=== PATIENT | female | born 1990 | race African-American/Black ===

== ENCOUNTER 2016-05-08 12:51 | Day surgery (SDC) | payer BC, MEDICAID ==
[2016-05-08] MEDS ORDERED: MIDAZOLAM 2 MG/2 ML INJ ONE (13:33)
[2016-05-08] MEDS ORDERED: FENTANYL CITRATE INJ/PF 100 MCG/2 ML AMPUL ONE (13:34)
[2016-05-08] MEDS ORDERED: ALTEPLASE INJ 2 MG VIAL (CATH CLEARANCE) INJ ONE (14:00)
[2016-05-08 14:39] VITALS: BP 129/76
--- NOTE | 2016-05-08 23:00 | EKG REPORT ---
SEVERITY:- NORMAL ECG - SINUS RHYTHM : Confirmed by: Lisa Vargas 08-May-2016 22:59:37
--- NOTE | 2016-05-25 13:17 | PDOC DISCHARGE SUMMARY ---
Discharge Summary (SDC) - Discharge Final Diagnosis: #1 end-stage renal disease on hemodialysis through a PermCath. #[address] #3 hypertension. Date of Surgery: 05/16/16 Discharge Date: 05/16/16 Condition: Good Forms: Discharge POC-Surgical Service Referrals: RENATA ONEIL MD [ACTIVE STAFF] - 05/11/16 9:00 am Respiratory Treatments at Home: Deep Breathing/Coughing Discharge Activity: Activity As Tolerated, Balance Activity w/Rest, Slowly Increase Activity, Walk Frequently Home Care Assistance: None Needed Report the Following to Your Physician Immediately: Shortness of Breath, Nausea , Vomiting, Increase in Pain, Fever over 101 Degrees, Unusual Bleeding, Redness , Swelling, Warmth, Increased Soreness, Drainage-Foul Smelling, Large Clots, Numbness, Tingling Sensation
--- NOTE | 2016-05-25 13:29 | Operative Report ---
Operative Report DATE OF SURGERY: 05/16/16 PREOPERATIVE DIAGNOSIS: #1 end-stage renal disease on hemodialysis through a PermCath. #[address] #3 hypertension POSTOPERATIVE DIAGNOSIS: #1 end-stage renal disease on hemodialysis through a PermCath. #[address] #3 hypertension OPERATION: Laparoscopic insertion of peritoneal dialysis catheter. SURGEON: RENATA ORLANDO SANDWICH HAND: TAMELA RAYGOZA ANESTHESIA: GA TISSUE REMOVED OR ALTERED: Not applicable. COMPLICATIONS: None ESTIMATED BLOOD LOSS: 10 mL. INTRAOPERATIVE FINDINGS: Of a surprisingly clear abdominal cavity. Very little adhesions. Photographs documenting this. Peritoneal dialysis catheter was placed in the proper position on the left with the coil well down in the pelvis. Easy ingress of a liter of heparinized solution and egress of 800 mils. I am optimistic for good function long-term for this catheter. PROCEDURE: After obtaining informed consent and going over the procedure with [the patient , she was taken to the operating room, [she was] anesthetized and intubated. The abdomen was prepped and draped in the usual sterile fashion. After the universal timeout, in which it was verified that the patient received IV antibiotic, the procedure commenced. The topographical location for the peritoneal dialysis catheter was sketched by applying it to the anterior abdominal wall. The reference point was the pubic symphysis the coil of the catheter, just beneath this level. In this way the position for the cuffs and the external catheter exit were ascertained and marked. The catheter was now replaced in antibiotic containing solution. An entry into the abdomen was sketched just to the right of the midline and transversely in the epigastrium. Local anesthesia was infiltrated. A 1 cm, transverse incision was made with a [15 blade scalpel]. Dissection now proceeded to the medial aspect of the right rectus sheath. This was opened and the muscle gently reflected. The posterior rectus sheath and peritoneum were opened between hemostats and entry was gained to the peritoneal cavity. This allowed introduction of a 5 mm laparoscopic port. The abdomen was now insufflated with carbon dioxide up to a maximum pressure of 12 mm of mercury. The camera was inserted and a good view gained of the abdomen. Photographs were taken. Local anesthesia was now infiltrated and an incision made in respect to the curve of the catheter. A 1 cm transverse incision was made at this point and dissection proceeded down to the rectus sheath. This was opened and a Veress needle on a reducing sleeve were were now introduced through the rectus muscle and the manipulated down to about 4 cm inferior to the incision. The peritoneum was now entered and the Veress needle removed. The internal cannula was now placed under direct vision. A swan neck peritoneal dialysis catheter was now placed on a stylette. Great care was taken to keep the orientation in reference to the white line on the catheter. It was now inserted into the peritoneal cavity under direct vision, through the introducer. As the catheter entered the abdomen the stylette was slowly withdrawn allowing it to assume its normal orientation and shape within the peritoneal cavity. Both the stylet and introducer were removed so as to place the internal cuff about 3 cm from the entry point of the peritoneal cavity, and within the rectus sheath. This was verified with respect to the incision. The external curve of the catheter was allowed to form precisely at the level of the incision. Externally the catheter was affixed to a Sakshi stylette which was now used to tunnel the catheter in the subcutaneous tissues to its exit site where it was now used to exit the skin. The catheter orientation and position and, particularly the 2 cuffs of the catheter were verified. Once this was done the external portion of the catheter was affixed to a Leur lock adapter and connected to a sterile IV tubing. This allowed introduction of 1 L of heparinized saline into the peritoneal cavity via the catheter. This occurred with brisk and free flow of fluid into the peritoneal cavity. Once the entire liter had been infused, the bag was now placed beneath the level of the patient and very satisfactory outflow was observed. With this in place, the camera and the catheter were removed and abdomen desufflated. The subcutaneous tissue in each incision was closed with interrupted 3-0 PDS. The skin in each incision was closed using interrupted and continuous sutures of 4-0 Monocryl. Once about 800 mils of the Infusaid had been passively removed from the abdomen, the catheter was flushed with 10 mL of heparinized solution and capped. The bio a patch was applied at the exit site. Benzoin was applied and Steri-Strips used to reinforce each of the wounds. It was also used to help anchor the Biopatch. It was also used to anchor the main catheter so that any external pressure would not dislodge the catheter. Dry gauze and tape applied and the procedure concluded.
--- NOTE | 2016-05-26 12:13 | DISCHARGE SUMMARY E ---
Discharge Summary NAME: LISS ESPINOZA : 1990 AGE: 25Y ADMITTED: 05/08/2016 DISCHARGED: 05/08/2016 FINAL DIAGNOSIS: Please note that the patient was admitted on 05/08 and discharged on 05/08/2016. DICTATING PHYSICIAN: RENATA ONEIL M.D. [id number] PHY#: [id number] ID: [id number] JOB#: [id number] ACCT: [id number] cc:RENATA ONEIL M.D. >
--- NOTE | 2016-05-26 12:15 | OPERATIVE REPORT E ---
Operative Report NAME: LISS SEPINOZA : 1990 AGE: 25Y DATE OF SURGERY: 05/08/2016 ROOM: ADDENDUM: The patient was operated on 05/08/2016. DICTATING PHYSICIAN: RENATA ONEIL M.D. [id number] PHY#: [id number] ID: [id number] JOB#: [id number] ACCT: [id number] cc:RENATA ONEIL M.D. >
== END 2016-05-08 14:43 | disposition home or self-care (01) ==
LOC: OROUT 12:51
PROVIDERS: ATTEND Surgery
PROC: 0WHG43Z Insertion of Infusion Device into Peritoneal Cavity, Percutaneous Endoscopic Approach (ICD-10-PCS; principal; 2016-05-08)
DX: I12.0 Hypertensive chronic kidney disease with stage 5 chronic kidney disease or end stage renal disease (principal); N18.6 End stage renal disease; E66.9 Obesity, unspecified; Z45.2 Encounter for adjustment and management of vascular access device; Z79.899 Other long term (current) drug therapy; Z68.37 Body mass index [BMI] 37.0-37.9, adult
CPT/HCPCS: 75898; 71010; 93005; 93010; 49324; Q9967; J2997; J2250; J3010

== ENCOUNTER 2016-05-16 08:26 | Day surgery (SDC) | payer BC, MEDICAID ==
[2016-05-11 10:11] LABS: HEMATOCRIT 36.2 % (36.0-47.0); HEMOGLOBIN 11.9 g/dL (12.0-15.5); HGB HCT DIFFERENCE -0.5; MEAN CORPUSCULAR HEMOGLOBIN 29.5 pg (27.0-33.4); MEAN CORPUSCULAR HGB CONC 32.9 g/dL (32.0-36.0); MEAN CORPUSCULAR VOLUME 90 fl (80-97); RED BLOOD COUNT 4.03 10^6/uL (3.72-5.28); RED CELL DISTRIBUTION WIDTH 17.5 % (11.5-14.0)
[2016-05-11 10:33] LABS: BLOOD UREA NITROGEN 48 mg/dL (7-20); CALCIUM 9.6 mg/dL (8.4-10.2); CARBON DIOXIDE 22 mmol/L (22-30); CHLORIDE 98 mmol/L (98-107); CREATININE RESULT 11.23 mg/dL (0.52-1.25); GLUCOSE 79 mg/dL (75-110); POTASSIUM 5.7 mmol/L (3.6-5.0); SODIUM 141.9 mmol/L (137-145)
[2016-05-11 10:34] LABS: ANION GAP 22 (5-19)
[~2016-05-16 08:26] MED LIST: BACITRACIN INJ 50,000 UNIT VIAL ONE; BUPIVACAINE HCL 0.25 % INJ/PF (2.5 MG/1 ML) 30 ML VIAL ONE; HEPARIN SOD (PORCINE) 1,000 UNIT/ML 1 ML VIAL ONE; LIDOCAINE 0.5% INJ-PF (5 MG/ML) 50 ML SDV ONE; LIDOCAINE 0.5% INJ-PF (5 MG/ML) 50 ML SDV SUBCUT PRN; NORMAL SALINE 1000 ML (RENAL PATIENTS) IV PRN; VANCOMYCIN HCL 500 MG in DEXTROSE 5%-WATER 100 ML IV PRN
[2016-05-16] MEDS ORDERED: MIDAZOLAM 2 MG/2 ML INJ ONE (10:32)
[2016-05-16] MEDS ORDERED: FENTANYL CITRATE INJ/PF 250 MCG/5 ML AMPULE ONE (10:32)
[2016-05-16] MEDS ORDERED: MORPHINE SULFATE 10 MG/ML INJ ONE (10:33)
[2016-05-16] MEDS ORDERED: PROPOFOL INJ 200 MG/20 ML VIAL IV ONE (10:33)
[2016-05-16] MEDS ORDERED: FENTANYL CITRATE INJ/PF 100 MCG/2 ML AMPUL IV PRN ×3 (11:44)
[2016-05-16] MEDS ORDERED: MEPERIDINE HCL/PF INJ 25 MG/1 ML DISP.SYRIN IV PRN (11:44)
[2016-05-16] MEDS ORDERED: OXYCODONE-ACETAMINOPHEN 5-325 MG TABLET PO PRN ×3 (11:44→13:39)
[2016-05-16] MEDS ORDERED: DIPHENHYDRAMINE HCL 50 MG/ML VIAL IV PRN (11:44)
[2016-05-16] MEDS ORDERED: PROMETHAZINE HCL INJ 25 MG/1 ML VIAL IV PRN ×2 (11:44)
[2016-05-16] MEDS ORDERED: MORPHINE SULFATE 10 MG/ML INJ IV PRN (11:44)
--- NOTE | 2016-05-16 12:23 | PDOC DISCHARGE SUMMARY ---
Discharge Summary (SDC) - Discharge Final Diagnosis: #1 end-stage renal disease on hemodialysis. #[address] #3 hypertension. Date of Surgery: 05/16/16 Discharge Date: 05/16/16 Condition: Good Treatment or Instructions: #1 activities within moderation encouraged. #2 follow up in my office by appointment in about 1 week. Call for appointment. #3 the wounds covered clean and dry until office visit. #4 hold off on school/work until evaluation in office. #5 may shower after 48 hours, keep operated area as dry as possible. #6 discharge from ambulatory to when ASU criteria met. #7 medications per medication reconciliation sheet. #8 Percocet every 8 hourly when necessary for pain. Prescriptions: Oxycodone HCl/Acetaminophen [Percocet 5-325 mg Tablet] 1 tab PO ASDIR PRN #15 tab PRN Reason: Discharge Diet: Other (Comments) - Renal
--- NOTE | 2016-05-16 12:27 | Operative Report ---
Operative Report DATE OF SURGERY: 05/16/16 PREOPERATIVE DIAGNOSIS: #1 end-stage renal disease on hemodialysis. #[address] #3 hypertension. POSTOPERATIVE DIAGNOSIS: #1 end-stage renal disease on hemodialysis. #[address] #3 hypertension. OPERATION: Laparoscopic insertion of peritoneal dialysis catheter. SURGEON: RENATA ORLANDO COATING AND BAKING OPERATOR: TAMELA RAYGOZA ANESTHESIA: GA TISSUE REMOVED OR ALTERED: Not applicable. COMPLICATIONS: None ESTIMATED BLOOD LOSS: 10 mL. INTRAOPERATIVE FINDINGS: Of a quite clear peritoneal cavity. One single adhesion in the facility of the umbilicus. Organs looked normal, normal looking ovaries and uterus, non. The left area shows a slight opening which could be the start of an inguinal hernia. He catheter position nicely with the tip well down in the pelvis, there was a tendency to twist slightly and this was corrected by manipulation with a grasper. The catheter accepted heparinized fluid easily 1 L ran in very quickly and 800 mils out quite easily. The catheter seems to function well. PROCEDURE: After obtaining informed consent and going over the procedure with [the patient and her family], she was taken to the operating room, [she was] anesthetized and intubated. The abdomen was prepped and draped in the usual sterile fashion. After the universal timeout, in which it was verified that the patient received IV antibiotic, the procedure commenced. The topographical location for the peritoneal dialysis catheter was sketched by applying it to the anterior abdominal wall. The reference point was the pubic symphysis the coil of the catheter, just beneath this level. In this way the position for the cuffs and the external catheter exit were ascertained and marked. The catheter was now replaced in antibiotic containing solution. An entry into the abdomen was sketched just to the right of the midline and transversely in the epigastrium. Local anesthesia was infiltrated. A 1 cm, transverse incision was made with a [15 blade scalpel]. Dissection now proceeded to the medial aspect of the right rectus sheath. This was opened and the muscle gently reflected. The posterior rectus sheath and peritoneum were opened between hemostats and entry was gained to the peritoneal cavity. This allowed introduction of a 5 mm laparoscopic port. The abdomen was now insufflated with carbon dioxide up to a maximum pressure of 12 mm of mercury. The camera was inserted and a good view gained of the abdomen. Photographs were taken. Local anesthesia was now infiltrated and an incision made in respect to the curve of the catheter. A 1 cm transverse incision was made at this point and dissection proceeded down to the rectus sheath. This was opened and a Veress needle on a reducing sleeve were were now introduced through the rectus muscle and the manipulated down to about 4 cm inferior to the incision. The peritoneum was now entered and the Veress needle removed. The internal cannula was now placed under direct vision. A swan neck peritoneal dialysis catheter was now placed on a stylette. Great care was taken to keep the orientation in reference to the white line on the catheter. It was now inserted into the peritoneal cavity under direct vision, through the introducer. As the catheter entered the abdomen the stylette was slowly withdrawn allowing it to assume its normal orientation and shape within the peritoneal cavity. Both the stylet and introducer were removed so as to place the internal cuff about 3 cm from the entry point of the peritoneal cavity, and within the rectus sheath. This was verified with respect to the incision. The external curve of the catheter was allowed to form precisely at the level of the incision. [In this patient, because of slight twisting of the catheter, a second 5 mm port was placed in the right midabdomen, under camera vision. This allowed the introduction of a grasper. The grasper was used to take the coil of the peritoneal dialysis catheter and to manipulate itinto the true pelvis. This was done successfully with a very nice appearance of the catheter in the abdomen. ] Externally the catheter was affixed to a Sakshi stylette which was now used to tunnel the catheter in the subcutaneous tissues to its exit site where it was now used to exit the skin. The catheter orientation and position and, particularly the 2 cuffs of the catheter were verified. Once this was done the external portion of the catheter was affixed to a Leur lock adapter and connected to a sterile IV tubing. This allowed introduction of 1 L of heparinized saline into the peritoneal cavity via the catheter. This occurred with brisk and free flow of fluid into the peritoneal cavity. Once the entire liter had been infused, the bag was now placed beneath the level of the patient and very satisfactory outflow was observed. With this in place, the camera and the catheter were removed and abdomen desufflated. The subcutaneous tissue in each incision was closed with interrupted 3-0 PDS. The skin in each incision was closed using interrupted and continuous sutures of 4-0 Monocryl. Once about 800 mils of the Infusaid had been passively removed from the abdomen, the catheter was flushed with 10 mL of heparinized solution and capped. The bio a patch was applied at the exit site. Benzoin was applied and Steri-Strips used to reinforce each of the wounds. It was also used to help anchor the Biopatch. It was also used to anchor the main catheter so that any external pressure would not dislodge the catheter. Dry gauze and tape applied and the procedure concluded. The first aid attendant provided retraction, thus facilitating the operative view. Controlled bleeding. The first aid attendant also followed the suturing, thus facilitating accurate suture placement. Sutured skin and applied dressings.
[2016-05-16] MEDS: FENTANYL CITRATE INJ/PF 100 MCG/2 ML AMPUL ONE ×2 (13:13→13:18)
[2016-05-16] MEDS ORDERED: SUCCINYLCHOLINE CHLORIDE INJ 200 MG/10 ML VIAL ONE (14:40)
[2016-05-16] MEDS ORDERED: METOCLOPRAMIDE HCL INJ/PF 10 MG/2 ML SDV ONE (14:40)
[2016-05-16] MEDS ORDERED: ONDANSETRON HCL INJ/PF 4 MG/2 ML SDV ONE (14:40)
[2016-05-16] MEDS ORDERED: PHENYLEPHRINE HCL INJ/PF 10 MG/1 ML SDV ONE (14:40)
[2016-05-16] MEDS ORDERED: LIDOCAINE 2% INJ-PF (20 MG/ML) 10 ML AMPUL ONE (14:40)
[2016-05-16] MEDS ORDERED: GLYCOPYRROLATE INJ 0.4 MG/2 ML VIAL ONE (14:40)
[2016-05-16] MEDS ORDERED: NEOSTIGMINE METHYLSULFATE 10 MG/10 ML VIAL ONE (14:40)
[2016-05-16] MEDS ORDERED: ROCURONIUM BROMIDE INJ 50 MG/5 ML VIAL IV ONE (14:40)
[2016-05-16 15:26] VITALS: BP 130/80
== END 2016-05-16 15:27 | disposition home or self-care (01) ==
LOC: OROUT 08:26
PROVIDERS: ATTEND Surgery
PROC: 0WHG43Z Insertion of Infusion Device into Peritoneal Cavity, Percutaneous Endoscopic Approach (ICD-10-PCS; principal; 2016-05-16 10:30)
DX: T82.858A Stenosis of other vascular prosthetic devices, implants and grafts, initial encounter (principal); I77.0 Arteriovenous fistula, acquired; N18.6 End stage renal disease; Z99.2 Dependence on renal dialysis; I12.0 Hypertensive chronic kidney disease with stage 5 chronic kidney disease or end stage renal disease; E66.9 Obesity, unspecified; N05.8 Unspecified nephritic syndrome with other morphologic changes; Z79.899 Other long term (current) drug therapy; Z68.37 Body mass index [BMI] 37.0-37.9, adult
CPT/HCPCS: 49324; 36415 ×2; 84132; 84703; 85027; 80048; J2250; J3490 ×4; J3010 ×2; J1644; J2765; J2270; J2370; J0330; J2405; J3370; J2704; J1642; 840

== ENCOUNTER → 2016-06-06 | Outpatient (CLI) | payer BC, MEDICAID | LOC: RAD 07:44 | PROVIDERS: ATTEND Internal Medicine Nephrology | DX: E21.3 Hyperparathyroidism, unspecified (principal) | CPT/HCPCS: 78070; A9500; Q9969 ==

== ENCOUNTER 2016-06-18 11:30 | Emergency (ER) | payer MEDICAID ==
--- NOTE | 2016-06-18 11:36 | ER Document Report ---
ED Medical Screen (RME) - General Stated Complaint: STD CHECK Mode of Arrival: Ambulatory Information source: Patient Notes: Patient is here requesting STD check as her partner is having symptoms. Patient denies any current symptoms at present. I have greeted and performed a rapid initial assessment of this patient. A comprehensive ED assessment and evaluation of the patient, analysis of test results and completion of the medical decision making process will be conducted by additional ED providers. TRAVEL OUTSIDE OF THE [place] IN LAST 30 DAYS: No - Related Data Allergies/Adverse Reactions: No Known Drug Allergies Allergy (Verified 06/18/16 11:35) Past Medical History - Past Medical History Cardiac Medical History: Reports: Hx Hypertension Denies: Hx Coronary Artery Disease, Hx Heart Attack Pulmonary Medical History: Denies: Hx Asthma, Hx Bronchitis, Hx COPD, Hx Pneumonia Neurological Medical History: Denies: Hx Cerebrovascular Accident, Hx Seizures Renal/ Medical History: Reports: Hx Ectopic , Hx End Stage Renal Disease, Hx Peritoneal Dialysis Musculoskeltal Medical History: Denies Hx Arthritis Past Surgical History: Reports: Hx Kidney (Renal Surgery) - Kidney Biopsy, peritoneal dialysis site - Immunizations Hx Diphtheria, Pertussis, Tetanus Vaccination: Yes Physical Exam - Vital signs Vitals: Temp Pulse Resp BP Pulse Ox 98.0 F 83 16 155/97 H 100 06/18/16 11:34 06/18/16 11:34 06/18/16 11:34 06/18/16 11:34 06/18/16 11:34 - General General appearance: Appears well, Alert In distress: None Course - Vital Signs Vital signs: Temp Pulse Resp BP Pulse Ox 98.0 F 83 16 155/97 H 100 06/18/16 11:34 06/18/16 11:34 06/18/16 11:34 06/18/16 11:34 06/18/16 11:34
--- NOTE | 2016-06-18 12:21 | ER Document Report ---
HPI - HPI Pain Level: 0 Context: patient is a 25 year old female p/w concern for std, she states her boyfriend who she is currently sexually active with (only partner, do not use protection) noticied a sore on the foreskin of his penis last sunday and pyuria, no d/c. patient denies any symptoms. no d/c, vaginal bleed, pyuria, hematuria, abdominal /pelvic pain, skin changes. 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 with PD cath available as back up PSH: port, fistula - REPRODUCTIVE Reproductive: DENIES: : - DERM Skin Color: Normal Past Medical History - General Information source: Patient - Social History Smoking Status: Unknown if Ever Smoked Chew tobacco use (# tins/day): No Frequency of alcohol use: None Drug Abuse: None Family History: Reviewed & Not Pertinent, Hypertension Patient has suicidal ideation: No Patient has homicidal ideation: No - Past Medical History Cardiac Medical History: Reports: Hx Hypertension Denies: Hx Coronary Artery Disease, Hx Heart Attack Pulmonary Medical History: Denies: Hx Asthma, Hx Bronchitis, Hx COPD, Hx Pneumonia Neurological Medical History: Denies: Hx Cerebrovascular Accident, Hx Seizures Renal/ Medical History: Reports: Hx Ectopic , Hx End Stage Renal Disease, Hx Peritoneal Dialysis Musculoskeltal Medical History: Denies Hx Arthritis Past Surgical History: Reports: Hx Kidney (Renal Surgery) - Kidney Biopsy, peritoneal dialysis site - Immunizations Hx Diphtheria, Pertussis, Tetanus Vaccination: Yes Vertical Provider Document - CONSTITUTIONAL Agree With Documented VS: Yes Exam Limitations: No Limitations General Appearance: WD/WN, No Apparent Distress - INFECTION CONTROL TRAVEL OUTSIDE OF THE [place] IN LAST 30 DAYS: No - RESPIRATORY O2 Sat by Pulse Oximetry: 100 Course - Re-evaluation Re-evalutation: 06/18/16 14:14 patient is a 25 year old female who presents with concern for STD. Her boyfriend has had a concerning ulceration on his penis for about one week but both admit to being faithful. At this time, patient is asymptomatic thus I will not treat prophylactically. I will follow up with her on Sunday to go over the rest of her results. Patient is agreeable to this plan. - Vital Signs Vital signs: Temp Pulse Resp BP Pulse Ox 98.0 F 83 16 155/97 H 100 06/18/16 11:34 06/18/16 11:34 06/18/16 11:34 06/18/16 11:34 06/18/16 11:34 Discharge - Discharge Clinical Impression: Screen for STD (sexually transmitted disease) Condition: Good Disposition: HOME, SELF-CARE Additional Instructions: -I will follow up with you on Sunday to go over your lab work up which should be completed by tomorrow. In the meantime, please refrain from sexual intercourse until you hear from me. Referrals: ALVAREZ RAPHAEL MD [Primary Care Provider] - Follow up as needed
[2016-06-18 13:57] LABS: APPEARANCE,URINE SLIGHTLY-CLOUDY; BILIRUBIN,URINE NEGATIVE (NEGATIVE); GLUCOSE, URINE 150 mg/dL (NEGATIVE); KETONES,URINE NEGATIVE (NEGATIVE); LEUKOCYTE ESTERASE,URINE NEGATIVE (NEGATIVE); NITRITE,URINE NEGATIVE (NEGATIVE); PROTEIN,URINE 100 mg/dL (NEGATIVE); URINE SPECIFIC GRAVITY 1.008; UROBILINOGEN,URINE NEGATIVE mg/dL (<2.0)
[2016-06-18 14:20] LABS: CHLAM PCR NOT DETECTED (NOT DETECT)
[2016-06-18 14:26] VITALS: BP 146/90
== END 2016-06-18 14:26 | disposition home or self-care (01) ==
LOC: ER 11:30
DX: Z11.3 Encounter for screening for infections with a predominantly sexual mode of transmission (principal); I12.0 Hypertensive chronic kidney disease with stage 5 chronic kidney disease or end stage renal disease; N18.6 End stage renal disease; Z99.2 Dependence on renal dialysis
CPT/HCPCS: 36415; 81001; 81025; 86592; 87210; 87491; 87591; 99283

== ENCOUNTER 2016-07-26 17:10 | Emergency (ER) | payer MEDICAID ==
[2016-07-26 17:28] VITALS: BP 135/76
--- NOTE | 2016-07-26 18:32 | ER Document Report ---
ED Medical Screen (RME) - General Stated Complaint: DIALYSIS PORT PROBLEM Notes: 25 yo female c/o dialysis port fell partially out. left chest wall dialysis catheter. Dialysis schedule MWF. was able to dialize today slight bleeding from site. TRAVEL OUTSIDE OF THE [place] IN LAST 30 DAYS: No - Related Data Allergies/Adverse Reactions: No Known Drug Allergies Allergy (Verified 07/26/16 18:30) Past Medical History - Past Medical History Cardiac Medical History: Reports: Hx Hypertension Denies: Hx Coronary Artery Disease, Hx Heart Attack Pulmonary Medical History: Denies: Hx Asthma, Hx Bronchitis, Hx COPD, Hx Pneumonia Neurological Medical History: Denies: Hx Cerebrovascular Accident, Hx Seizures Renal/ Medical History: Reports: Hx Ectopic , Hx End Stage Renal Disease, Hx Peritoneal Dialysis Musculoskeltal Medical History: Denies Hx Arthritis Past Surgical History: Reports: Hx Kidney (Renal Surgery) - Kidney Biopsy, peritoneal dialysis site - Immunizations Hx Diphtheria, Pertussis, Tetanus Vaccination: Yes Physical Exam - Vital signs Vitals: Temp Pulse Resp BP Pulse Ox 98.6 F 93 16 135/76 H 99 07/26/16 17:27 07/26/16 17:27 07/26/16 17:27 07/26/16 17:27 07/26/16 17:27 Course - Vital Signs Vital signs: Temp Pulse Resp BP Pulse Ox 98.6 F 93 16 135/76 H 99 07/26/16 17:27 07/26/16 17:27 07/26/16 17:27 07/26/16 17:27 07/26/16 17:27
--- NOTE | 2016-07-26 21:15 | ER Document Report ---
ED General - General Chief Complaint: Other Stated Complaint: DIALYSIS PORT PROBLEM Notes: Patient is a 25-year-old female past history of chronic kidney disease with dialysis dependence who presents with concerns of the left subclavian dialysis catheter is been pulled back. She went for dialysis center today and did have dialysis completed but it became pulled out thereafter. They did dress the site after. [place] any significant pain or bleeding to the area. No history of similar symptoms in the past. TRAVEL OUTSIDE OF THE [place] IN LAST 30 DAYS: No - Related Data Allergies/Adverse Reactions: No Known Drug Allergies Allergy (Verified 07/26/16 18:30) Past Medical History - General Information source: Patient - Social History Smoking Status: Never Smoker Chew tobacco use (# tins/day): No Frequency of alcohol use: None Drug Abuse: None Lives with: Family Family History: Reviewed & Not Pertinent, Hypertension Patient has suicidal ideation: No Patient has homicidal ideation: No - Past Medical History Cardiac Medical History: Reports: Hx Hypertension Denies: Hx Coronary Artery Disease, Hx Heart Attack Pulmonary Medical History: Denies: Hx Asthma, Hx Bronchitis, Hx COPD, Hx Pneumonia Neurological Medical History: Denies: Hx Cerebrovascular Accident, Hx Seizures Renal/ Medical History: Reports: Hx Ectopic , Hx End Stage Renal Disease, Hx Peritoneal Dialysis Musculoskeltal Medical History: Denies Hx Arthritis Past Surgical History: Reports: Hx Kidney (Renal Surgery) - Kidney Biopsy, peritoneal dialysis site - Immunizations Hx Diphtheria, Pertussis, Tetanus Vaccination: Yes Review of Systems - Review of Systems Notes: Constitutional: Negative for fever. Cardiovascular: Negative for chest pain. Respiratory: Negative for shortness of breath. Gastrointestinal: Negative for vomiting Musculoskeletal: Negative for back pain. Skin: Negative for rash. Neurological: Negative for weakness or numbness. 10 point ROS negative except as marked above and in HPI. Physical Exam - Vital signs Vitals: Temp Pulse Resp BP Pulse Ox 98.6 F 93 16 135/76 H 99 07/26/16 17:27 07/26/16 17:27 07/26/16 17:27 07/26/16 17:27 07/26/16 17:27 Interpretation: Normal Notes: PHYSICAL EXAMINATION: GENERAL: Well-appearing, well-nourished and in no acute distress. HEAD: Atraumatic, normocephalic. EYES: sclera anicteric, conjunctiva are normal. ENT: Moist mucous membranes. NECK: Normal range of motion LUNGS: Normal work of breathing HEART: 2+ radial pulses bilaterally EXTREMITIES: no pitting or edema. No cyanosis. NEUROLOGICAL: No focal neurological deficits. Moves all extremities spontaneously and on command. PSYCH: Normal mood, normal affect. SKIN: Warm, Dry, normal turgor, a left subclavian Doris's catheter was then pulled back without any bleeding or erythema to the entrance site Course - Re-evaluation Re-evalutation: 07/26/16 21:14 Patient presents with concerns that her left subclavian dialysis catheter has been pulled back. The catheter is significantly withdrawn unlikely not usable for dialysis. She said went to the dialysis center and they did cover the area. I have asked that the patient contact the vascular surgeon Dr. Toney who placed this immediately in the morning as she will likely need replacement of the catheter. She denies any additional symptoms. There is no bleeding to the site. - Vital Signs Vital signs: Temp Pulse Resp BP Pulse Ox 98.6 F 93 16 135/76 H 99 07/26/16 17:27 07/26/16 17:27 07/26/16 17:27 07/26/16 17:27 07/26/16 17:27 Discharge - Discharge Clinical Impression: Complications, dialysis, catheter, mechanical Qualifiers: Encounter type: initial encounter Qualified Code(s): T82.49XA - Other complication of vascular dialysis catheter, initial encounter Condition: Good Disposition: HOME, SELF-CARE Additional Instructions: You need to contact Dr. Toney first thing in the morning and notify him that you will need a replacement catheter as the current one is likely no longer usable. You should also contact the clinic in [place] that you are going to go see tomorrow and notify them that you will likely not be able to make the appointment unless they are able to replace your catheter while you are there. Return for any additional concerns including bleeding around the site or pain. Forms: Return to Work Referrals: REMINGTON MACEDO MD [Primary Care Provider] - Follow up as needed
== END 2016-07-26 21:39 | disposition home or self-care (01) ==
LOC: ER 17:10
DX: T85.691A Other mechanical complication of intraperitoneal dialysis catheter, initial encounter (principal); Y82.8 Other medical devices associated with adverse incidents; Y84.1 Kidney dialysis as the cause of abnormal reaction of the patient, or of later complication, without mention of misadventure at the time of the procedure; I12.0 Hypertensive chronic kidney disease with stage 5 chronic kidney disease or end stage renal disease; N18.6 End stage renal disease; Z99.2 Dependence on renal dialysis
CPT/HCPCS: 99283

== ENCOUNTER → 2016-08-15 | Outpatient (CLI) | payer MEDICAID | LOC: RAD 08:52 | PROVIDERS: ATTEND Surgery | DX: N25.81 Secondary hyperparathyroidism of renal origin (principal) | CPT/HCPCS: 78070; A9500; Q9969 ==

== ENCOUNTER 2016-08-25 15:53 | Emergency (ER) | payer MEDICAID ==
--- NOTE | 2016-08-25 17:48 | ER Document Report ---
ED General - General Time seen by provider: 17:40 Mode of Arrival: Ambulatory Information source: Patient TRAVEL OUTSIDE OF THE [place] IN LAST 30 DAYS: No - HPI Onset: This morning - see HPI note Associated symptoms: Body/muscle aches, Fever Similar symptoms previously: No Recently seen / treated by doctor: No <STEVE NAVA - Last Filed: 08/25/16 19:21> <IGLESIA CHERY - Last Filed: 08/28/16 03:04> - General Chief Complaint: Flu Symptoms Stated Complaint: FEVER,BODYACHES Notes: Patient is a 25-year-old female presented emergency department for fever and body aches. 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 Patient has been on dialysis for 3 years ago Sunday, Sunday, Sunday. Patient went to dialysis today. After leaving dialysis, she started feeling sick. Patient denies any history of PE or DVT. Patient is on a blood thinner, Coumadin, the level was checked one week ago. (STEVE NAVA) - Related Data Allergies/Adverse Reactions: No Known Drug Allergies Allergy (Verified 08/25/16 16:09) Past Medical History - General Information source: Patient - Social History Smoking Status: Never Smoker Chew tobacco use (# tins/day): No Frequency of alcohol use: None Drug Abuse: None Family History: Hypertension Patient has suicidal ideation: No Patient has homicidal ideation: No - Past Medical History Cardiac Medical History: Reports: Hx Hypertension Renal/ Medical History: Reports: Hx Ectopic , Hx End Stage Renal Disease Past Surgical History: Reports: Hx Kidney (Renal Surgery) - Kidney Biopsy, peritoneal dialysis site - Immunizations Hx Diphtheria, Pertussis, Tetanus Vaccination: Yes <STEVE NAVA - Last Filed: 08/25/16 19:21> Review of Systems - Review of Systems Constitutional: See HPI, Fever, Other - body aches EENT: No symptoms reported Cardiovascular: No symptoms reported Respiratory: No symptoms reported Gastrointestinal: No symptoms reported Genitourinary: No symptoms reported Female Genitourinary: No symptoms reported Musculoskeletal: No symptoms reported Skin: No symptoms reported Hematologic/Lymphatic: No symptoms reported Neurological/Psychological: No symptoms reported -: Yes All other systems reviewed and negative <STEVE NAVA - Last Filed: 08/25/16 19:21> Physical Exam - Vital signs Interpretation: Tachycardic - General General appearance: Appears well, Alert In distress: Mild - HEENT Head: Normocephalic, Atraumatic Eyes: Normal Pupils: PERRL Mucous membranes: Moist - Respiratory Respiratory status: No respiratory distress Chest status: Nontender Breath sounds: Normal Chest palpation: Normal - Cardiovascular Rhythm: Regular Heart sounds: Normal auscultation Murmur: No - Abdominal Inspection: Normal Distension: No distension Bowel sounds: Normal Tenderness: Nontender Organomegaly: No organomegaly - Back Back: Normal, Nontender - Extremities General upper extremity: Other - Positive thrill and right arm fistula General lower extremity: Other - Dialysis access site to the right anterior thigh. It is clean, dry, intact with no signs of necrosis, crepitus or cellulitis - Neurological Neuro grossly intact: Yes Cognition: Normal Orientation: AAOx4 Zaira Coma Scale Eye Opening: Spontaneous [place] Coma Scale Verbal: Oriented [place] Coma Scale Motor: Obeys Commands Zaira Coma Scale Total: 15 Speech: Normal - Psychological Associated symptoms: Normal affect, Normal mood - Skin Skin Temperature: Warm Skin Moisture: Dry <STEVE NAVA - Last Filed: 08/25/16 19:21> <IGLESIA CHERY - Last Filed: 08/28/16 03:04> - Vital signs Vitals: Temp Pulse Resp BP Pulse Ox 100.6 F H 115 H 14 158/99 H 100 08/25/16 16:09 08/25/16 16:09 08/25/16 16:09 08/25/16 16:09 08/25/16 16:09 Course - Laboratory Result Diagrams: 08/25/16 19:00 08/25/16 19:00 <STEVE NAVA - Last Filed: 08/25/16 19:21> - Laboratory Result Diagrams: 08/25/16 19:00 08/25/16 19:00 <IGLESIA CHERY - Last Filed: 08/28/16 03:04> - Re-evaluation Re-evalutation: 08/25/16 20:15 Patient presents emergency per with chief complaint of fever starting this afternoon. 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 She dialyzes Sunday and Sunday last dialyzed today to completion. She also on Coumadin for protein C deficiency and sees Dr. Dent. She has a fever or chill and bodyaches temperature here is 100.6 she is little tachycardic not tachypneic she is well-appearing nontoxic HEENT is normal no nuchal rigidity or concerns for acute meningitis heart rate and rhythm is tachycardic lungs crawfish bilateral wheezes rales or rhonchi abdomen soft no tenderness guarding rebound rigidity no pulsatile abdominal masses or hernias from plus symmetrical nondirectional edema Tender swelling skin is warm dry without cyanosis must take or purpura right antecubital fossa has a positive thrill and audible bruit no signs of infection she has catheter in the right anterior leg with also clean dry and intact no signs of infection cellulitis or crepitus. After evaluation no acute white count elevation negative strep negative pneumonia negative flu patient does not make urine. At this time she is not septic she is not hypotensive fever is improved tachycardia is improved. Don't see any source of infection given the nature of her history of or follow primary care physician one day she is unable to do so return to the emergency department sooner for increasing worsening or new symptoms long discussion with her and her father at the bedside. (IGLESIA CHERY) - Vital Signs Vital signs: Temp Pulse Resp BP Pulse Ox 99.9 F 104 H 18 119/66 93 08/25/16 20:21 08/25/16 20:21 08/25/16 20:21 08/25/16 20:21 08/25/16 20:21 - Laboratory Laboratory results interpreted by me: 08/25/16 08/25/16 19:00 19:00 RDW 20.1 H Lymphocytes % 9.5 L BUN 26 H Creatinine 7.38 H Est GFR ( Amer) 8 L Est GFR (Non-Af Amer) 7 L Calcium 7.8 L Discharge <STEVE NAVA - Last Filed: 08/25/16 19:21> <IGLESIA CHERY - Last Filed: 08/28/16 03:04> - Discharge Clinical Impression: Fever Qualifiers: Fever type: unspecified Qualified Code(s): R50.9 - Fever, unspecified Condition: Stable Disposition: HOME, SELF-CARE Instructions: Acetaminophen Additional Instructions: Fever Fever is the body's reaction to infection. Fever can also occur with illnesses that create fever-producing substances in the body. By itself, fever is not harmful. It helps the body fight invading germs. We are more concerned with: (1) What's causing the fever? (2) How can we keep you more comfortable until the fever goes away? Early in an illness, symptoms are often so vague that a diagnosis can't be made. If the doctor hasn't identified a clear cause for your fever, you will probably develop new symptoms within the next two days. Contact the doctor if you develop severe worsening headache, rash, chest pain, cough with yellow or green sputum, difficulty breathing, abdominal pain, or other new symptoms. There is no reason to treat a fever if you're comfortable. If the fever is causing aches, headache, and fatigue, you can treat it with ibuprofen (Advil , Nuprin, etc) or acetaminophen (Tylenol). Follow the directions on the bottle. Get plenty of liquids (three quarts per day). Rest. Physical work or sports will raise the temperature higher and make you feel much worse. Dress lightly. If you're chilling, this means the temperature is trying to go higher. Take ibuprofen or acetaminophen. When you feel sweaty and "feverish" the temperature is coming down. If the fever doesn't go away within two days or if you become more ill, call the doctor or return at once for re-examination. Follow-up with your primary care physician one to 2 days return to the ER for increasing worsening or new symptoms Referrals: ALVAREZ RAPHAEL MD [Primary Care Provider] - Follow up as needed Scribe Attestation: 08/25/16 20:15 I personally performed the services described in the documentation reviewed the documentation recorded by the scribe in my presence and it accurately incompletely records my words and actions (IGLESIA CHERY) Scribe Documentation - Scribe Written by Louie:: Steve Nava 08/25/16 19:42 acting as scribe for :: Charles <STEVE NAVA - Last Filed: 08/25/16 19:21>
[2016-08-25] MEDS ORDERED: ACETAMINOPHEN 325 MG TABLET PO ONE (17:49)
[2016-08-25 19:12] LABS: ABSOLUTE EOSINOPHILS # (AUTO) 0.2 10^3/uL (0.0-0.6); ABSOLUTE LYMPHOCYTES (AUTO) 0.5 10^3/uL (0.5-4.7); ABSOLUTE MONOCYTES (AUTO) 0.4 10^3/uL (0.1-1.4); ABSOLUTE NEUT (AUTO) 3.9 10^3/uL (1.7-8.2); BASOPHILS % (AUTO) 0.6 % (0-2); EOSINOPHILS % (AUTO) 4.6 % (0-6); HEMATOCRIT 38.2 % (36.0-47.0); HEMOGLOBIN 12.3 g/dL (12.0-15.5); HGB HCT DIFFERENCE -1.3; LYMPHOCYTES % (AUTO) 9.5 % (13-45); MEAN CORPUSCULAR HEMOGLOBIN 28.6 pg (27.0-33.4); MEAN CORPUSCULAR HGB CONC 32.3 g/dL (32.0-36.0); MEAN CORPUSCULAR VOLUME 89 fl (80-97); MONOCYTES % (AUTO) 7.5 % (3-13); RED BLOOD COUNT 4.31 10^6/uL (3.72-5.28); RED CELL DISTRIBUTION WIDTH 20.1 % (11.5-14.0); SEGMENTED NEUTROPHILS % (AUTO) 77.8 % (42-78); WHITE BLOOD COUNT 5.1 10^3/uL (4.0-10.5)
[2016-08-25 19:35] LABS: BLOOD UREA NITROGEN 26 mg/dL (7-20); CALCIUM 7.8 mg/dL (8.4-10.2); CARBON DIOXIDE 24 mmol/L (22-30); CREATININE RESULT 7.38 mg/dL (0.52-1.25); GLUCOSE 97 mg/dL (75-110); POTASSIUM 4.7 mmol/L (3.6-5.0)
[2016-08-25 20:02] LABS: ANION GAP 18 (5-19); CHLORIDE 99 mmol/L (98-107)
[2016-08-25 21:06] VITALS: BP 119/66
== END 2016-08-25 20:30 | disposition home or self-care (01) ==
LOC: ER 15:53
DX: R50.9 Fever, unspecified (principal); M79.1 Myalgia; R00.0 Tachycardia, unspecified; I12.0 Hypertensive chronic kidney disease with stage 5 chronic kidney disease or end stage renal disease; N18.6 End stage renal disease; Z99.2 Dependence on renal dialysis; D68.59 Other primary thrombophilia; Z79.01 Long term (current) use of anticoagulants
CPT/HCPCS: 99283; 36415; 87040; 87070; 87880; 83605; 85025; 87077; 80048; 87804; 71010; J3490

== ENCOUNTER 2016-09-26 14:19 | Outpatient (CLI) | payer MEDICAID ==
[2016-09-26] MEDS ORDERED: CALCIUM GLUCONATE IV PRN (14:26)
[2016-09-26] MEDS ORDERED: DEXTROSE 5% IV PRN (14:26)
[2016-09-26] MEDS ORDERED: WATER IV PRN (14:26)
[2016-09-26 16:02] VITALS: BP 146/62
== END 2016-09-26 16:08 | disposition home or self-care (01) ==
LOC: II 14:19
PROVIDERS: ATTEND Internal Medicine Nephrology
PROC: 3E033GC Introduction of Other Therapeutic Substance into Peripheral Vein, Percutaneous Approach (ICD-10-PCS; principal; 2016-09-26)
DX: E83.51 Hypocalcemia (principal)
CPT/HCPCS: 96365; J0610

== ENCOUNTER → 2016-09-26 | Outpatient (CLI) | payer MEDICAID | LOC: OD 09:56 | PROVIDERS: ATTEND Internal Medicine Nephrology | DX: E83.51 Hypocalcemia (principal) | CPT/HCPCS: 36415 ==

== ENCOUNTER 2016-09-28 09:34 | Outpatient (CLI) | payer MEDICAID ==
[2016-09-28] MEDS ORDERED: WATER IV PRN (09:57)
[2016-09-28] MEDS ORDERED: CALCIUM GLUCONATE IV PRN (09:57)
[2016-09-28] MEDS ORDERED: DEXTROSE 5% IV PRN (09:57)
[2016-09-28] MEDS ORDERED: CALCIUM GLUCONATE 1000 MG/10 ML INJ IV ONE (10:30)
[2016-09-28 10:49] VITALS: BP 126/72
[2016-09-28] MEDS ORDERED: HEPARIN SOD (PORCINE) 1,000 UNIT/ML 10 ML VIAL IV PRN (11:19)
== END 2016-09-28 13:06 | disposition home or self-care (01) ==
LOC: II 09:34 → 4N 09:48 → II 13:06
PROVIDERS: ATTEND Internal Medicine Nephrology
PROC: 3E043GC Introduction of Other Therapeutic Substance into Central Vein, Percutaneous Approach (ICD-10-PCS; principal; 2016-09-28)
DX: E83.51 Hypocalcemia (principal)
CPT/HCPCS: 96365; J0610; J1644

== ENCOUNTER → 2016-09-28 | Outpatient (CLI) | payer MEDICAID | LOC: OD 07:10 | PROVIDERS: ATTEND Internal Medicine Nephrology | DX: Z53.9 Procedure and treatment not carried out, unspecified reason (principal) ==

== ENCOUNTER → 2016-09-30 | Outpatient (CLI) | payer MEDICAID | LOC: OD 10:12 | PROVIDERS: ATTEND Internal Medicine Nephrology | DX: E83.51 Hypocalcemia (principal); E53.8 Deficiency of other specified B group vitamins | CPT/HCPCS: 36415; 82330; 83735 ==

== ENCOUNTER 2016-10-01 00:42 | Emergency (ER) | payer MEDICAID ==
[2016-10-01 01:35] LABS: ALANINE AMINOTRANSFERASE 21 U/L (9-52); ALKALINE PHOSPHATASE 213 U/L (38-126); ASPARTATE AMINO TRANSFERASE 25 U/L (14-36); BILIRUBIN,DIRECT 0.5 mg/dL (0.0-0.4); BILIRUBIN,TOTAL 0.5 mg/dL (0.2-1.3); BLOOD UREA NITROGEN 52 mg/dL (7-20); CARBON DIOXIDE 23 mmol/L (22-30); CHLORIDE 100 mmol/L (98-107); CREATININE RESULT 9.59 mg/dL (0.52-1.25); GLUCOSE 88 mg/dL (75-110); POTASSIUM 5.1 mmol/L (3.6-5.0); SODIUM 142.7 mmol/L (137-145); TOTAL PROTEIN 7.3 g/dL (6.3-8.2)
[2016-10-01 01:52] LABS: ANION GAP 19 (5-19)
[2016-10-01] MEDS ORDERED: CALCIUM GLUCONATE 1000 MG/10 ML INJ IV ONE ×2 (02:21→03:38)
--- NOTE | 2016-10-01 02:27 | ER Document Report ---
ED General - General Mode of Arrival: Ambulatory Information source: Patient TRAVEL OUTSIDE OF THE [place] 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 Patient states that she receives calcium infusions on Sunday, Sunday, and Sunday at dialysis, and receives infusions on non-dialysis days depending on calcium levels. Patient reports feeling tingling to the bilateral hands and feet that is resolved with calcium supplementation. (ENDY LUCAS) - Related Data Allergies/Adverse Reactions: vancomycin Adverse Reaction (Verified 10/01/16 00:51) Urticaria Past Medical History - General Information source: Patient - Social History Smoking Status: Unknown if Ever Smoked Family History: Hypertension - Past Medical History Cardiac Medical History: Reports: Hx Hypertension Renal/ Medical History: Reports: Hx Ectopic , Hx End Stage Renal Disease, Hx Peritoneal Dialysis GI Medical History: Reports: Hx Gastroesophageal Reflux Disease Past Surgical History: Reports: Hx Kidney (Renal Surgery) - Kidney Biopsy, peritoneal dialysis site, Other - parathyroidectomy - Immunizations Hx Diphtheria, Pertussis, Tetanus Vaccination: Yes <ENDY LUCAS - Last Filed: 10/01/16 02:41> Review of Systems - Review of Systems Constitutional: See HPI, Other - hypocalcemia EENT: No symptoms reported Cardiovascular: No symptoms reported Respiratory: No symptoms reported Gastrointestinal: No symptoms reported Genitourinary: No symptoms reported Female Genitourinary: No symptoms reported Musculoskeletal: No symptoms reported Skin: No symptoms reported Hematologic/Lymphatic: No symptoms reported Neurological/Psychological: No symptoms reported, Tingling - bilateral hands and feet -: Yes All other systems reviewed and negative <ENDY LUCAS - Last Filed: 10/01/16 02:41> Physical Exam - General General appearance: Alert, Other - perm cath is present In distress: None - HEENT Head: Normocephalic, Atraumatic Eyes: Normal Extraocular movements intact: Yes Pupils: PERRL - Respiratory Respiratory status: No respiratory distress - Cardiovascular Rhythm: Regular - Abdominal Inspection: Obese - Back Back: Normal - Extremities General upper extremity: Normal inspection, Normal ROM, Other - shunt present to the left upper extremity General lower extremity: Normal inspection, Normal ROM - Neurological Neuro grossly intact: Yes - Psychological Associated symptoms: Normal affect, Normal mood - Skin Skin Temperature: Warm Skin Moisture: Dry Skin Color: Normal <ENDY LUCAS - Last Filed: 10/01/16 02:41> Course - Laboratory Result Diagrams: 10/01/16 01:00 <ENDY LUCAS - Last Filed: 10/01/16 02:41> - Laboratory Result Diagrams: 10/01/16 01:00 <GABRIELLE DONNELLY - Last Filed: 10/01/16 04:09> - Vital Signs Vital signs: Temp Pulse Resp BP Pulse Ox 98.1 F 85 18 138/89 H 87 L 10/01/16 00:51 10/01/16 00:51 10/01/16 00:51 10/01/16 00:51 10/01/16 00:51 - Laboratory Laboratory results interpreted by me: 10/01/16 10/01/16 01:00 02:50 Potassium 5.1 H BUN 52 H Creatinine 9.59 H Est GFR ( Amer) 6 L Est GFR (Non-Af Amer) 5 L Calcium 6.0 L* Ionized Calcium Mary 0.83 L Direct Bilirubin 0.5 H Alkaline Phosphatase 213 H Discharge <ENDY LUCAS - Last Filed: 10/01/16 02:41> <GABRIELLE DONNELLY - Last Filed: 10/01/16 04:09> - Discharge Clinical Impression: Hypocalcemia Condition: Stable Disposition: HOME, SELF-CARE Additional Instructions: Follow-up with your doctors at dialysis on Sunday. Return if any problems. Referrals: ALVAREZ RAPHAEL MD [Primary Care Provider] - Follow up as needed Scribe Attestation: 10/01/16 04:09 I personally performed the services described in the documentation, reviewed and edited the documentation which was dictated to the scribe in my presence, and it accurately records my words and actions. (GABRIELLE DONNELLY) Scribe Documentation - Scribe Written by Scribe:: Louie Ruggiero, 10/01/2016 0233 acting as scribe for :: Cony <ENDY LUCAS - Last Filed: 10/01/16 02:41>
[2016-10-01 06:44] VITALS: BP 126/84
== END 2016-10-01 06:13 | disposition home or self-care (01) ==
LOC: ER 00:42
DX: E83.51 Hypocalcemia (principal); R20.2 Paresthesia of skin; I12.0 Hypertensive chronic kidney disease with stage 5 chronic kidney disease or end stage renal disease; N18.6 End stage renal disease; E89.0 Postprocedural hypothyroidism; Z99.2 Dependence on renal dialysis; Z88.3 Allergy status to other anti-infective agents
CPT/HCPCS: 99283; 96365; 96366; 36415; 80053; 82330; J0610

== ENCOUNTER 2016-10-03 15:28 | Outpatient (CLI) | payer MEDICAID ==
[2016-10-03] MEDS ORDERED: DEXTROSE 5% IV PRN (16:20)
[2016-10-03] MEDS ORDERED: WATER IV PRN (16:20)
[2016-10-03] MEDS ORDERED: CALCIUM GLUCONATE IV PRN (16:20)
[2016-10-03] MEDS ORDERED: HEPARIN SOD (PORCINE) 1,000 UNIT/ML 10 ML VIAL IV PRN (16:30)
[2016-10-03 18:50] VITALS: BP 124/80
== END 2016-10-03 18:45 | disposition home or self-care (01) ==
LOC: II 15:28 → 4S 15:33 → II 18:45
PROVIDERS: ATTEND Internal Medicine Nephrology
PROC: 3E043GC Introduction of Other Therapeutic Substance into Central Vein, Percutaneous Approach (ICD-10-PCS; principal; 2016-10-03)
DX: E83.51 Hypocalcemia (principal)
CPT/HCPCS: J0610; J1644; 96365

== ENCOUNTER → 2016-10-07 | Outpatient (CLI) | payer MEDICAID | LOC: OD 10:40 | PROVIDERS: ATTEND Internal Medicine Nephrology | DX: E83.51 Hypocalcemia (principal); Z53.8 Procedure and treatment not carried out for other reasons | CPT/HCPCS: 36415; 82330; 83735 ==

== ENCOUNTER 2016-11-28 07:44 | Day surgery (SDC) | payer OTHER, MEDICAID ==
[~2016-11-28 07:44] MED LIST changes: -BACITRACIN INJ 50,000 UNIT VIAL ONE; -HEPARIN SOD (PORCINE) 1,000 UNIT/ML 1 ML VIAL ONE; -LIDOCAINE 0.5% INJ-PF (5 MG/ML) 50 ML SDV SUBCUT PRN; -NORMAL SALINE 1000 ML (RENAL PATIENTS) IV PRN; -VANCOMYCIN HCL 500 MG in DEXTROSE 5%-WATER 100 ML IV PRN
[2016-11-28] MEDS ORDERED: CEFAZOLIN 1 GM/D5W RTU 1 GM/50 ML RTUPB IV PRN (08:00)
[2016-11-28 08:25] LABS: HEMATOCRIT 37.8 % (36.0-47.0); HEMOGLOBIN 12.4 g/dL (12.0-15.5); HGB HCT DIFFERENCE -0.6; MEAN CORPUSCULAR HEMOGLOBIN 29.2 pg (27.0-33.4); MEAN CORPUSCULAR HGB CONC 32.8 g/dL (32.0-36.0); MEAN CORPUSCULAR VOLUME 89 fl (80-97); RED BLOOD COUNT 4.24 10^6/uL (3.72-5.28); RED CELL DISTRIBUTION WIDTH 17.3 % (11.5-14.0); WHITE BLOOD COUNT 3.8 10^3/uL (4.0-10.5)
[2016-11-28 08:47] LABS: BLOOD UREA NITROGEN 55 mg/dL (7-20); CHLORIDE 98 mmol/L (98-107); CREATININE RESULT 10.99 mg/dL (0.52-1.25); GLUCOSE 84 mg/dL (75-110); POTASSIUM 5.3 mmol/L (3.6-5.0)
[2016-11-28 08:55] LABS: CARBON DIOXIDE 20 mmol/L (22-30); SODIUM 140.4 mmol/L (137-145)
[2016-11-28 09:00] LABS: ANION GAP 22 (5-19)
--- NOTE | 2016-11-28 09:04 | PDOC H&P ---
General Chief Complaint: This patient is referred across for removal of her dialysis catheter. She has established on the right arm cephalic vein fistula, which is working well for her. The peritoneal dialysis catheter is redundant. - Current Medications/Allergies Home Medications: Furosemide [Lasix 40 mg Tablet] 40 mg PO DAILY 08/22/12 Hydralazine HCl [Apresoline 50 mg Tablet] 100 mg PO TID 08/21/15 Sodium Bicarbonate [Sodium Bicarbonate 650 mg Tablet] 650 mg PO BID 08/21/15 Metoprolol Tartrate [Lopressor 25 mg Tablet] 25 mg PO DAILY 09/20/15 Calcium Acetate [Phoslo 667 mg Capsule] 667 mg PO AC 05/08/16 Clonidine HCl 0.1 mg PO DAILY 05/08/16 Calcitriol 5 cap PO BID 09/28/16 Warfarin Sodium [Coumadin 5 mg Tablet] 5 mg PO QHS 09/28/16 Allergies/Adverse Reactions: vancomycin Adverse Reaction (Verified 10/01/16 00:51) Urticaria Past Medical History Cardiac Medical History: Reports: Hypertension Denies: Congestive Heart Failure Pulmonary Medical History: Denies: Tuberculosis Neurological Medical History: Renal/ Medical History: Reports: End Stage Renal Disease GI Medical History: Reports: Gastroesophageal Reflux Disease Denies: Cirrhosis Musculoskeltal Medical History: Psychiatric Medical History: Denies: Bipolar Disorder, Depression Hematology: Reports: Anemia Denies: Bleeding Tendencies Past Surgical History Past Surgical History: Reports: Other - parathyroidectomy Family History Family History: Hypertension Parental Family History Reviewed: No Children Family History Reviewed: No Sibling(s) Family History Reviewed.: No Social History Smoking Status: Never Smoker Frequency of Alcohol Use: None Hx Recreational Drug Use: No Drugs: None Hx Prescription Drug Abuse: No Physical Exam Vital Signs: Temp Pulse Resp BP Pulse Ox 98.1 F 91 16 127/81 H 100 11/28/16 07:27 11/28/16 07:27 11/28/16 07:27 11/28/16 07:27 11/28/16 07:27 Intake & Output 11/27/16 11/28/16 11/29/16 06:59 06:59 06:59 Intake Total 0 Balance 0 Weight 87 kg 87.54 kg Additional comments: Constitutional: Well-developed well-nourished -[place] lady, moderately increased body mass index. No apparent acute distress. Eyes: Mucous membranes pink and moist, pupils equal and reactive to light. Conjunctiva normal. Cornea normal. ENT: Hearing grossly normal. External pinna normal to inspection. Teeth intact. Tongue normal to inspection. Cardiac: Heart sounds normal. Respiratory breath sounds are present bilaterally, normal. Normal respiratory effort. Skin: Normal to inspection. No ulcers, normal turgor. Abdomen: Soft, nontender. Liver and spleen are not palpably enlarged. Bowel sounds are normal. No hernia noted. Surgical scars and left-sided peritoneal dialysis catheter in place. Psychiatric: Judgment, memory, insight seem normal. Mood is pleasant and appropriate. Extremities: Upper extremities show normal range of movement. Pulses present noted to the radial arteries. Capillary refill normal. No cyanosis noted. No muscle wasting noted. Right brachiocephalic fistula functional. . Impression/Plan Impression: #1 end-stage renal disease on hemodialysis. 2. Peritoneal dialysis cath in place. 3. Hypertension. Plan: In this patient with a redundant parat[place] dialysis catheter, established on the right arm brachiocephalic fistula, removal of her peritoneal dialysis catheter is in order. The risks, benefits, expected outcome and alternatives are accepted by her.
[2016-11-28] MEDS ORDERED: NORMAL SALINE 1000 ML (RENAL PATIENTS) IV PRN (09:30)
[2016-11-28] MEDS ORDERED: OXYCODONE-ACETAMINOPHEN 5-325 MG TABLET PO PRN ×2 (09:48)
[2016-11-28] MEDS ORDERED: MEPERIDINE HCL/PF INJ 25 MG/1 ML DISP.SYRIN IV PRN (09:48)
[2016-11-28] MEDS ORDERED: FENTANYL CITRATE INJ/PF 100 MCG/2 ML AMPUL IV PRN ×3 (09:48)
[2016-11-28] MEDS ORDERED: DIPHENHYDRAMINE HCL 50 MG/ML VIAL IV PRN (09:48)
[2016-11-28] MEDS ORDERED: MORPHINE SULFATE 10 MG/ML INJ IV PRN (09:48)
[2016-11-28] MEDS ORDERED: PROMETHAZINE HCL INJ 25 MG/1 ML VIAL IV PRN ×2 (09:48)
--- NOTE | 2016-11-28 10:16 | PDOC DISCHARGE SUMMARY ---
Discharge Summary (SDC) - Discharge Final Diagnosis: .#1 end-stage renal disease on hemodialysis. 2. Peritoneal dialysis cath in place. 3. Hypertension Date of Surgery: 11/28/16 Discharge Date: 11/28/16 Condition: Good Treatment or Instructions: Discharge home [after recovery per ASU criteria]. Diet , [renal],as tolerated, when fully awake advance as tolerated. Activities within moderation encouraged. Follow up in my office by appointment in about [1 week]. Call for appointment. Leave wounds [covered], [keep clean and dry, until office visit in 1 week]. Hold of on school/work [until evaluation in office]. Meds per med rec. Percocet prescription. May shower [in 48 hrs], [try to keep operated area as dry as possible]. Prescriptions: Oxycodone HCl/Acetaminophen [Percocet 5-325 mg Tablet] 1 tab PO ASDIR PRN #15 tab PRN Reason: Discharge Diet: Other (Comments) - Renal Respiratory Treatments at Home: Deep Breathing/Coughing Discharge Activity: Activity As Tolerated Report the Following to Your Physician Immediately: Shortness of Breath, Unusual Bleeding
--- NOTE | 2016-11-28 10:21 | Operative Report ---
Operative Report DATE OF SURGERY: 11/28/16 PREOPERATIVE DIAGNOSIS: .#1 end-stage renal disease on hemodialysis. 2. Peritoneal dialysis cath in place. 3. Hypertension POSTOPERATIVE DIAGNOSIS: .#1 end-stage renal disease on hemodialysis. 2. Peritoneal dialysis cath in place. Post removal. 3. Hypertension OPERATION: PD catheter removal SURGEON: RENATA ORLANDO LEAF TINNER: TAMELA RAYGOZA ANESTHESIA: LMAC TISSUE REMOVED OR ALTERED: Not applicable. COMPLICATIONS: None ESTIMATED BLOOD LOSS: 10 mL. INTRAOPERATIVE FINDINGS: Of a well founded left sided peritoneal dialysis catheter. The cultures were unusually from the incorporated into the tissues. Removed in entirety. Satisfactory hemostasis. PROCEDURE: After obtaining informed consent and going over the procedure with [the patient and her family], she was taken to the operating room, [she was] anesthetized The abdomen was prepped and draped in the usual sterile fashion. After the universal timeout, in which it was verified that the patient received IV antibiotic, the procedure commenced. The topographical location for the peritoneal dialysis catheter was sketched by gentle traction and palpating the abdominal wall. Local anesthesia was noted to the previous placement. Incision made and dissection proceeded bluntly in the subcutaneous tissues down to the catheter which was grasped with a Omega clamp and placed in traction. The external cuff was now dissected away using blunt and cautery dissection. The external cuff was dissected free and the external portion of the catheter transected allowing the remaining of the catheter be brought into the wound. It was placed in traction and dissection proceeded down into the rectus sheath sharply incising the anterior aspect over the catheter. Blunt dissection was now used to separate the cuff from the surrounding tissues. The entire catheter was now removed and taken off the field. The wound was carefully checked for hemostasis , particularly in the rectus sheath. Once this was secure a small piece of Surgicel was tucked into the rectus sheath. The wound was now closed using interrupted 3-0 PDS vertical mattress sutures. Dressings applied procedure concluded. The rehab care assistant provided retraction, thus facilitating the operative view. Controlled bleeding. The rehab care assistant also followed the suturing, thus facilitating accurate suture placement. Sutured skin and applied dressings.
[2016-11-28] MEDS ORDERED: FENTANYL CITRATE INJ/PF 100 MCG/2 ML AMPUL ONE (10:29)
[2016-11-28] MEDS ORDERED: OXYCODONE-ACETAMINOPHEN 5-325 MG TABLET ONE (11:20)
[2016-11-28 12:25] VITALS: BP 116/68
== END 2016-11-28 12:10 | disposition home or self-care (01) ==
LOC: OROUT 07:44
PROVIDERS: ATTEND Surgery
PROC: 0WPG03Z Removal of Infusion Device from Peritoneal Cavity, Open Approach (ICD-10-PCS; principal; 2016-11-28 09:30)
DX: N18.6 End stage renal disease (principal); I12.0 Hypertensive chronic kidney disease with stage 5 chronic kidney disease or end stage renal disease; Z99.2 Dependence on renal dialysis; K21.9 Gastro-esophageal reflux disease without esophagitis; E89.2 Postprocedural hypoparathyroidism; D64.9 Anemia, unspecified; Z79.899 Other long term (current) drug therapy; Z79.01 Long term (current) use of anticoagulants; Z88.1 Allergy status to other antibiotic agents
CPT/HCPCS: 36415; 84703; 85027; 80048; 49422; J0690; J3010; J3490; 1844

== ENCOUNTER 2017-05-22 19:57 | Emergency (ER) | payer OTHER, MEDICAID ==
--- NOTE | 2017-05-22 21:54 | RADIOLOGY REPORT (SQ) ---
EXAM DESCRIPTION: CHEST PA/LAT COMPLETED DATE/TIME: 05/22/2017 9:41 pm REASON FOR STUDY: chest pain COMPARISON: 08/25/2016. EXAM PARAMETERS: NUMBER OF VIEWS: two views TECHNIQUE: Digital Frontal and Lateral radiographic views of the chest acquired. RADIATION DOSE: NA LIMITATIONS: none FINDINGS: LUNGS AND PLEURA: No opacities, masses or pneumothorax. No pleural effusion. MEDIASTINUM AND HILAR STRUCTURES: No masses or contour abnormalities. HEART AND VASCULAR STRUCTURES: Heart normal size. No evidence for failure. BONES: No acute findings. HARDWARE: None in the chest. OTHER: No other significant finding. IMPRESSION: NO SIGNIFICANT RADIOGRAPHIC FINDING IN THE CHEST. TECHNICAL DOCUMENTATION: JOB ID: [id number] [employer]- All Rights Reserved
--- NOTE | 2017-05-23 00:33 | ER Document Report ---
ED General - General Chief Complaint: Chest Wall Pain Stated Complaint: CHEST PAIN Time Seen by Provider: 05/23/17 00:32 Notes: Patient is a 26-year-old female with a history of hypertension and dialysis from chronic kidney disease. She presents with complaints of chest pain on the right side. She says it hurts when she moves certain ways. She is very tender over that area. She denies any history of coronary disease. No fevers. No vomiting. No recent difficulty breathing. No new leg pain or leg swelling. No other complaints at this time. TRAVEL OUTSIDE OF THE [place] IN LAST 30 DAYS: No - Related Data Allergies/Adverse Reactions: vancomycin Adverse Reaction (Verified 10/01/16 00:51) Urticaria Past Medical History - Social History Smoking Status: Unknown if Ever Smoked Frequency of alcohol use: None Drug Abuse: None Family History: Hypertension Patient has suicidal ideation: No Patient has homicidal ideation: No - Past Medical History Cardiac Medical History: Reports: Hx Hypertension Denies: Hx Congestive Heart Failure Pulmonary Medical History: Denies: Hx Tuberculosis Neurological Medical History: Renal/ Medical History: Reports: Hx Ectopic , Hx End Stage Renal Disease. Denies: Hx Peritoneal Dialysis GI Medical History: Reports: Hx Gastroesophageal Reflux Disease. Denies: Hx Cirrhosis Musculoskeltal Medical History: Psychiatric Medical History: Denies: Hx Bipolar Disorder, Hx Depression Past Surgical History: Reports: Hx Kidney (Renal Surgery) - Kidney Biopsy, peritoneal dialysis site, Other - parathyroidectomy - Immunizations Hx Diphtheria, Pertussis, Tetanus Vaccination: Yes Review of Systems - Review of Systems Notes: My Normal Review Basic REVIEW OF SYSTEMS: CONSTITUTIONAL : Denies fever, chills, or sweats. Denies recent illness. EENT: Denies eye, ear, throat, or mouth pain or symptoms. Denies nasal or sinus congestion. CARDIOVASCULAR: Chest pain RESPIRATORY: Denies cough, cold, or chest congestion. Denies shortness of breath, difficulty breathing, or wheezing. GASTROINTESTINAL: Denies abdominal pain. Denies nausea, vomiting, or diarrhea. Denies constipation. Last BM: MUSCULOSKELETAL: Denies neck or back pain or joint pain or swelling. SKIN: Denies rash or skin lesions. NEUROLOGICAL: Denies altered mental status or loss of consciousness. Denies headache. Denies weakness or paralysis or loss of use of either side. Denies problems with gait or speech. Denies sensory or motor loss. ALL OTHER SYSTEMS REVIEWED AND NEGATIVE. Physical Exam - Vital signs Vitals: Temp Pulse Resp BP Pulse Ox 98.5 F 77 16 149/90 H 100 05/22/17 21:11 05/22/17 21:11 05/22/17 21:11 05/22/17 21:11 05/22/17 21:11 - Notes Notes: General Appearance: Well nourished, alert, cooperative, no acute distress, mild obvious discomfort. Vitals: reviewed, See vital signs table. Eyes: PERRL, EOMI, Conjuctiva clear Mouth: No decreasd moisture Chest wall: Easily reproducible pain to palpation over the right anterior chest wall. Also pain when she goes to sit up off the bed. Lungs: No wheezing, No rales, No rhonci, No accessory muscle use, good air exchange bilaterally. Heart: Normal rate, Regular rythm, No murmur, no rub Abdomen: Normal BS, soft, No rigidity, No abdominal tenderness, No guarding, no rebound, no abdominal masses, no organomegaly Extremities: good pulses in all extremities, no swelling or tenderness in the extremities, no edema. Skin: warm, dry, appropriate color, no rash Neuro: speech clear, oriented x 3, normal affect, responds appropriately to questions. Course - Re-evaluation Re-evalutation: 05/23/17 04:46 Patient's EKG and chest x-ray are concerning. Her symptoms are very muscular skeletal exam. There are very easily reproducible with palpation. Patient says the pain is decreased with palpation over the ribs in the right upper chest and right flank is the same pain that she has that she presents with. I do not suspect coronary disease based on her physical examination and history. At this time I feel patient safe to be discharged home. I encourage her take Tylenol for pain. Encouraged her follow-up with her doctor for reevaluation. I encouraged her return to ER immediately if she has worsening pain, difficulty breathing, fevers, or feels unwell. Patient agrees with plan will be discharged home. Dictation of this chart was performed using voice recognition software; therefore, there may be some unintended grammatical errors. - Vital Signs Vital signs: Temp Pulse Resp BP Pulse Ox 98.3 F 79 19 144/86 H 97 05/23/17 00:59 05/23/17 00:59 05/23/17 00:59 05/23/17 00:59 05/23/17 00:59 - EKG Interpretation by Me Additional EKG results interpreted by me: 05/23/17 00:33 EKG is reviewed and interpreted by me. EKG shows sinus rhythm with rate of [address] segment elevation or depression. No ischemic T-wave inversions. MO interval, QRS duration, QTc intervals are within normal range. Old EKG for comparison is from May 08, 2016. Discharge - Discharge Clinical Impression: Chest pain Qualifiers: Chest pain type: unspecified Qualified Code(s): R07.9 - Chest pain, unspecified Condition: Stable Disposition: HOME, SELF-CARE Additional Instructions: Your EKG and chest xray are normal appearing. Please have a low threshold to return to the ER if you ave difficulty breathing, worsening pain, change in location of your pain, fevers, or feel unwell. Please return take Tylenol for pain. Please follow up closely with your doctor in 2-3 days for reevaluation. Forms: Special Work Note
[2017-05-23 01:02] VITALS: BP 144/86
--- NOTE | 2017-05-23 08:48 | EKG REPORT ---
SEVERITY:- NORMAL ECG - SINUS RHYTHM : Confirmed by: Porsha Hodges MD 23-May-2017 08:47:51
== END 2017-05-23 01:01 | disposition home or self-care (01) ==
LOC: ER 19:57
DX: R07.9 Chest pain, unspecified (principal); I12.9 Hypertensive chronic kidney disease with stage 1 through stage 4 chronic kidney disease, or unspecified chronic kidney disease; N18.9 Chronic kidney disease, unspecified
CPT/HCPCS: 71046; 93005; 93010; 99285